=== PATIENT | female | born 1990 | race Caucasian/White ===

== ENCOUNTER 2024-07-29 22:26 | Inpatient (IN) | payer OTHER ==
[~2024-07-29] VITALS: Ht 157.5 cm; Wt 69.9 kg
[2024-07-29 21:44] VITALS: BP 120/77
[2024-07-29] MEDS ORDERED: RINGERS SOLUTION,LACTATED 1,000 ML IV SCH (22:45)
[2024-07-29] MEDS ORDERED: MORPHINE SULFATE 4 MG IV PRN (23:00)
[2024-07-29] MEDS ORDERED: IRON236 MG PO (23:12)
[2024-07-29] MEDS ORDERED: PRENATABS RX T1 EACH PO (23:12)
[2024-07-29] MEDS ORDERED: CHILDREN'S ASPI81 MG PO (23:13)
[2024-07-29 23:45] VITALS: BP 116/74
[2024-07-30 04:39] VITALS: BP 122/68
[2024-07-30 07:44] VITALS: BP 87/54
[2024-07-30] MEDS ORDERED: MORPHINE SULFATE 4 MG/ML CARTRIDGE IV PRN (11:00)
[2024-07-30 11:25] VITALS: BP 122/70
[2024-07-30] MEDS ORDERED: MAGNESIUM SULFATE IN WATER 50 ML IV ONE (13:15)
[2024-07-30] MEDS ORDERED: MAGNESIUM SULFATE IN WATER 0.04 GM/ML IV.SOLN IV ONE (13:16)
[2024-07-30] MEDS ORDERED: BETAMETHASONE ACETATE,SOD PHOS 30 MG/5 ML ML ONE (13:16)
[2024-07-30] MEDS ORDERED: MAGNESIUM SULFATE IN WATER 500 ML IV SCH (13:45)
[2024-07-30 15:30] VITALS: BP 116/73
[2024-07-30 19:08] VITALS: BP 125/71
[2024-07-30 23:39] VITALS: BP 116/66
[2024-07-31 03:45] VITALS: BP 108/62
[2024-07-31 07:40] VITALS: BP 115/72
[2024-07-31] MEDS ORDERED: BETAMETHASONE ACETATE,SOD PHOS 30 MG/5 ML ML IM SCH ×3 (09:00→13:30)
[2024-07-31 10:51] VITALS: BP 93/51
[2024-07-31 15:18] VITALS: BP 116/55
[2024-07-31 20:45] VITALS: BP 109/65
[2024-07-31] MEDS ORDERED: TERCONAZOLE 20 GM TUBE VAG SCH (21:00)
[2024-07-31 23:19] VITALS: BP 120/66
[2024-08-01 03:50] VITALS: BP 103/64
[2024-08-01 06:15] VITALS: BP 102/66; O2SAT 100
[2024-08-01] MEDS ORDERED: NIFEDIPINE 30 MG TAB.SA.OSM PO SCH (09:00)
[2024-08-01 10:57] VITALS: BP 129/73
[2024-08-01 15:48] VITALS: BP 118/61
[2024-08-02 01:46] VITALS: BP 114/64
[2024-08-02] MEDS ORDERED: NIFEDIPINE 60 MG TAB.SA.OSM PO SCH (09:00)
[2024-08-02 09:03] VITALS: BP 119/67
[2024-08-02] MEDS ORDERED: TERBUTALINE SULFATE 1 MG/ML AMPUL ONE (11:12)
[2024-08-02] MEDS ORDERED: TERBUTALINE SULFATE 1 MG/ML AMPUL SUBCUTANEO STA (14:09)
[2024-08-02 16:00] VITALS: BP 110/68
[2024-08-03 01:13] VITALS: BP 106/65
[2024-08-03 08:00] VITALS: BP 106/67
[2024-08-03 16:01] VITALS: BP 111/70
[2024-08-03] MEDS ORDERED: FAMOTIDINE/PF 20 MG/2 ML VIAL IV PUSH PRN (18:15)
[2024-08-04] VITALS: BP 113/69
[2024-08-04 09:01] VITALS: BP 115/68
[2024-08-04 16:12] VITALS: BP 105/67
[2024-08-04] MEDS ORDERED: NIFEDIPINE 30 MG TAB.SA.OSM PO SCH (21:00)
[2024-08-04] MEDS ORDERED: MAGNESIUM SULFATE IN WATER 0.04 GM/ML IV.SOLN IV ONE (23:42)
[2024-08-04] MEDS ORDERED: MAGNESIUM SULFATE IN WATER 4 GM/100 ML PIGGYBACK IV ONE (23:42)
[2024-08-04] MEDS ORDERED: MAGNESIUM SULFATE IN WATER 100 ML IV ONE (23:45)
[2024-08-04] MEDS ORDERED: MAGNESIUM SULFATE IN WATER 500 ML IV SCH (23:45)
[2024-08-05 00:20] VITALS: BP 116/68
[2024-08-05 00:42] VITALS: BP 120/73
[2024-08-05] MEDS ORDERED: Procardia Xl 30MG TA PO (07:41)
[2024-08-05 08:00] VITALS: BP 107/71
== END 2024-08-05 13:21 | disposition home or self-care (01) | DRG 833 ==
LOC: OBS/DEL 22:26 → LDR 07-30 13:23 → OB/GYN 08-01 09:46
PROVIDERS: ADMIT Obstetrics & Gynecology Gynecology; ATTEND Obstetrics & Gynecology Gynecology
PROC: 4A1HXCZ Monitoring of Products of Conception, Cardiac Rate, External Approach (ICD-10-PCS; principal; 2024-07-30)
PROC: BY4FZZZ Ultrasonography of Third Trimester, Single Fetus (ICD-10-PCS; 2024-08-03)
PROC: BU4CZZZ Ultrasonography of Uterus and Ovaries (ICD-10-PCS; 2024-08-03)
DX: O60.03 Preterm labor without delivery, third trimester (principal); O26.843 Uterine size-date discrepancy, third trimester; O36.8130 Decreased fetal movements, third trimester, not applicable or unspecified; Z3A.34 34 weeks gestation of pregnancy

== ENCOUNTER 2024-08-31 13:15 | Inpatient (IN) | payer OTHER ==
[~2024-08-31] VITALS: Ht 157.5 cm; Wt 69.4 kg
[~2024-08-31 13:15] MED LIST: CHILDREN'S ASPI81 MG PO; IRON236 MG PO; PRENATABS RX T1 EACH PO; Procardia Xl 30MG TA PO
[2024-09-07] MEDS ORDERED: RINGERS SOLUTION,LACTATED 1,000 ML IV SCH (08:15)
[2024-09-07] MEDS ORDERED: OXYTOCIN 500 ML IV ONE (08:15)
[2024-09-07 09:06] VITALS: BP 127/89
[2024-09-07] MEDS ORDERED: PEPCID AC10 MG PO (10:15)
[2024-09-07 11:06] LABS: BASO % 0.2 % (0.1-1.2); EOS # 0.08 (0.04-0.54); EOS % 0.7 % (0.7-7.0); LYMPH # 1.70 (1.18-3.74); LYMPH % 15.8 % (19.3-53.1); MEAN PLATELET VOLUME 11.10 fl (9.4-12.4); MONO # 0.93 (0.24-0.82); MONO % 8.7 % (4.7-12.5); NEUT # 7.88 (1.56-6.13); NEUT % 73.5 % (34.0-71.1); RED CELL DISTRIBUTION WIDTH 14.0 % (11.6-14.4)
[2024-09-07 11:52] LABS: INR < 0.93
[2024-09-07 11:56] LABS: ALT/SGPT 28.0 U/L (12-78); AST/SGOT 23.0 U/L (15-37); BILIRUBIN TOTAL 0.5 mg/dL (0.3-1.2); BUN CREA RATIO 15.0 (7.0-25.0); CREATININE SERUM 0.39 mg/dL (0.55-1.02); GFR 188.13; GLOBULINA 3.6 G/DL (2.4-3.5); GLUCOSE FASTING 64.0 mg/dL (65-100); OSMOLALITY SERUM 275.0 MOSM/KG (275-295)
[2024-09-07 16:20] VITALS: BP 90/56
[2024-09-07] MEDS ORDERED: OXYTOCIN 20 UNITS/1000ML RL PIGGYBAG IV ONE (16:49)
[2024-09-07] MEDS ORDERED: ERYTHROMYCIN BASE OPHT 1GM EACH TUBE OP ONE (16:49)
[2024-09-07] MEDS ORDERED: CHLORHEXIDINE GLUCONATE 120 ML BOTTLE TOP ONE (16:50)
[2024-09-07] MEDS ORDERED: LIDOCAINE HCL 1% 10ML VIAL ONE ×2 (16:50→17:42)
[2024-09-07] MEDS ORDERED: MORPHINE SULFATE 4 MG/ML VIAL IV STA (17:16)
[2024-09-07 18:48] VITALS: BP 140/80
[2024-09-07 19:00] VITALS: BP 133/71
[2024-09-07] MEDS ORDERED: OXYTOCIN 1,000 ML IV SCH (19:00)
[2024-09-07] MEDS ORDERED: CHLORHEXIDINE GLUCONATE 120 ML BOTTLE TP SCH (19:00)
[2024-09-07] MEDS ORDERED: DOCUSATE SODIUM 100MG CAP PO SCH (19:01)
[2024-09-07] MEDS ORDERED: CEFOXITIN SODIUM 2,000 MG VIAL IV STA (19:01)
[2024-09-07] MEDS ORDERED: BENZOCAINE/MENTHOL 90 ML BOTTLE TOP SCH (20:00)
[2024-09-07] MEDS ORDERED: OxyCODONE HCL 5 MG TABLET (ROXICODONE) PO SCH (20:00)
[2024-09-07] MEDS ORDERED: HYDROCORTISONE 2.5% 20 GM TUBE TOP SCH (21:00)
[2024-09-07 21:56] VITALS: BP 126/84
[2024-09-08] MEDS ORDERED: KETOROLAC TROMETHAMINE 10 MG TABLET PO SCH
[2024-09-08 02:03] VITALS: BP 126/73
[2024-09-08 08:44] VITALS: BP 132/86
[2024-09-08] MEDS ORDERED: HYDROCORTISONE 2.5% 20 GM TUBE TOP SCH (09:00)
[2024-09-08 17:46] VITALS: BP 116/68
[2024-09-09] VITALS: BP 124/80
[2024-09-09 09:05] VITALS: BP 135/82
== END 2024-09-09 14:28 | disposition home or self-care (01) | DRG 768 ==
LOC: LDR 09-07 05:21 → OB/GYN 09-07 21:23 → LDR 09-10 13:15
PROVIDERS: ADMIT Obstetrics & Gynecology Gynecology; ATTEND Obstetrics & Gynecology Gynecology
PROC: 10E0XZZ Delivery of Products of Conception, External Approach (ICD-10-PCS; principal; 2024-09-07)
PROC: 0DQR0ZZ Repair Anal Sphincter, Open Approach (ICD-10-PCS; 2024-09-07)
PROC: 0W8NXZZ Division of Female Perineum, External Approach (ICD-10-PCS; 2024-09-07)
PROC: 3E033VJ Introduction of Other Hormone into Peripheral Vein, Percutaneous Approach (ICD-10-PCS; 2024-09-07)
PROC: 4A1HXCZ Monitoring of Products of Conception, Cardiac Rate, External Approach (ICD-10-PCS; 2024-09-07)
DX: O70.21 Third degree perineal laceration during delivery, IIIa (principal); Z37.0 Single live birth; Z3A.39 39 weeks gestation of pregnancy